=== PATIENT | female | born 1990 | race Caucasian/White ===

== ENCOUNTER 2018-04-27 16:07 | Emergency (ER) | payer OTHER ==
[~2018-04-27] VITALS: Ht 157.5 cm; Wt 71.4 kg
[~2018-04-27 16:07] MED LIST: SULF-168 PO
[2018-04-27] MEDS ORDERED: IBUPROFEN 600 MG TABLET PO ONE (18:30)
[2018-04-27 19:15] VITALS: BP 113/63
== END 2018-04-27 19:23 | disposition home or self-care (01) ==
LOC: EMS 16:08
DX: S86.811A Strain of other muscle(s) and tendon(s) at lower leg level, right leg, initial encounter (principal); X50.1XXA Overexertion from prolonged static or awkward postures, initial encounter; Y93.01 Activity, walking, marching and hiking; Y92.89 Other specified places as the place of occurrence of the external cause; Y99.8 Other external cause status
CPT/HCPCS: 99282